=== PATIENT | female | born 1945 | race Caucasian/White ===

== ENCOUNTER → 2023-04-18 12:18 | Outpatient (REF) | payer MEDICARE, SELFPAY | LOC: WDC 12:18 | PROVIDERS: ATTENDING PHYSICIAN Nurse Practitioner Adult Health | DX: Z12.31 Encounter for screening mammogram for malignant neoplasm of breast (principal) | CPT/HCPCS: 77063; 77067 ==

== ENCOUNTER → 2024-04-21 12:24 | Outpatient (REF) | payer MEDICARE, OTHER, SELFPAY | LOC: WDC 12:24 | PROVIDERS: ATTENDING PHYSICIAN Internal Medicine Hematology & Oncology; FAMILY PHYSICIAN Internal Medicine | DX: Z12.31 Encounter for screening mammogram for malignant neoplasm of breast (principal) | CPT/HCPCS: 77063; 77067 ==

== ENCOUNTER → 2024-05-15 08:56 | Outpatient (REF) | payer MEDICARE, OTHER, SELFPAY | LOC: RAD 08:56 | PROVIDERS: ATTENDING PHYSICIAN Internal Medicine Hematology & Oncology; FAMILY PHYSICIAN Internal Medicine | DX: C50.912 Malignant neoplasm of unspecified site of left female breast (principal); M85.88 Other specified disorders of bone density and structure, other site | CPT/HCPCS: 77080 ==

== ENCOUNTER → 2024-08-22 07:54 | Outpatient (REF) | payer MEDICARE, OTHER, SELFPAY | LOC: HWRAD 07:54 | PROVIDERS: ATTENDING PHYSICIAN Internal Medicine | DX: E11.69 Type 2 diabetes mellitus with other specified complication (principal); Z82.49 Family history of ischemic heart disease and other diseases of the circulatory system | CPT/HCPCS: 75571 ==

== ENCOUNTER → 2024-09-05 08:43 | Outpatient (REF) | payer MEDICARE, OTHER, SELFPAY | LOC: RCS 08:43 | PROVIDERS: ATTENDING PHYSICIAN Internal Medicine | DX: I25.10 Atherosclerotic heart disease of native coronary artery without angina pectoris (principal); Z82.49 Family history of ischemic heart disease and other diseases of the circulatory system; E11.69 Type 2 diabetes mellitus with other specified complication; E78.2 Mixed hyperlipidemia | CPT/HCPCS: 93017; 93350 ==